=== PATIENT | male | born 1930 | race Caucasian/White ===

== ENCOUNTER 2017-06-07 05:28 | Day surgery (SDC) | payer OTHER ==
[~2017-06-07] VITALS: Ht 180.3 cm; Wt 73.0 kg
[~2017-06-07 05:28] MED LIST: ERGOCALCIF50000 UNIT PO; HYZAAR 50-121 TABLET PO; PLAVIX75 MG PO; PRAVACHOL10 MG PO; PROSCAR5 MG PO
[2017-06-07 06:05] VITALS: BP 126/70
[2017-06-07 10:15] VITALS: BP 127/71
[2017-06-07 11:15] VITALS: BP 104/75
[2017-06-07 12:49] VITALS: BP 104/75
== END 2017-06-07 13:00 | disposition home or self-care (01) ==
LOC: SDC 05:28
PROC: 0TBB8ZX Excision of Bladder, Via Natural or Artificial Opening Endoscopic, Diagnostic (ICD-10-PCS; principal; 2017-06-07)
DX: C67.4 Malignant neoplasm of posterior wall of bladder (principal); N40.1 Benign prostatic hyperplasia with lower urinary tract symptoms; R35.0 Frequency of micturition; I10 Essential (primary) hypertension; E78.5 Hyperlipidemia, unspecified; I25.10 Atherosclerotic heart disease of native coronary artery without angina pectoris; K21.9 Gastro-esophageal reflux disease without esophagitis; I65.23 Occlusion and stenosis of bilateral carotid arteries; Z79.02 Long term (current) use of antithrombotics/antiplatelets; Z87.891 Personal history of nicotine dependence
CPT/HCPCS: 88305; J0330; J0690; J1170; J2405; J2710; J3010